=== PATIENT | female | born 2000 | race African-American/Black ===

== ENCOUNTER 2021-02-22 15:18 | Observation (INO) | payer MEDICAID ==
[~2021-02-22] VITALS: Ht 162.6 cm; Wt 68.0 kg
[2021-02-22] MEDS ORDERED: PREN1TAB23 PO (16:00)
== END 2021-02-22 18:10 | disposition home or self-care (01) ==
LOC: INTOOBSV 15:18 → 8 EST LDRP 15:18
PROVIDERS: ADMIT Obstetrics & Gynecology; ATTEND Obstetrics & Gynecology
DX: O26.893 Other specified pregnancy related conditions, third trimester (principal); R10.2 Pelvic and perineal pain; Z3A.39 39 weeks gestation of pregnancy
CPT/HCPCS: 59025; 76805; 76818; G0378; 99281